=== PATIENT | female | born 1975 | race Caucasian/White ===

== ENCOUNTER → 2025-04-24 13:34 | Outpatient (CLI) | payer OTHER, SELFPAY ==
--- NOTE | 2025-04-24 13:37 | DI.US.S_ITS ---
PROCEDURE: US PELVIC COMPLETE INDICATIONS: IUD not easily removed. Check for positioning TECHNIQUE: Real-time scanning was performed of the pelvic organs, with image documentation. Additional endovaginal scanning was necessary due to incomplete visualization of the adnexal and endometrial structures by transabdominal scanning. COMPARISON: None. FINDINGS: Uterus: Uterus is anteverted and normal in size at 6.0 x 2.5 x 4.1 cm. The myometrium is homogeneous. The endometrium measures 3.1 mm combined thickness. There is an IUD with appropriate positioning in the fundal endometrium. No myometrial mass, cyst, or periuterine fluid collection. Ovaries: The right ovary measures 2.2 x 0.7 x 0.9 cm, with a calculated ovarian volume of 0.7 cc. The left ovary measures 1.7 x 1.2 x 1.6 cm, with a calculated ovarian volume of 1.6 cc. Ovarian appearance is age-appropriate. No adnexal masses are seen. Other: No pathologic free abdominal or pelvic fluid. IMPRESSION: Anteverted uterus without a quit positioning of IUD. We strive to produce accurate, complete, and clear reports of imaging services. To assist us in improving patient care, this report was composed using standard report templates and voice recognition software. Therefore, it may contain abnormal punctuation, insertions and/or omissions. Occasional wrong-word or sound-alike substitutions may occur. Though we review the report and make efforts to correct it, we do recommend that the report be read carefully in proper context to recognize any text inaccuracies. Dictated by: Janell Xiong M.D. on 04/25/2025 at 11:19 Approved by: Janell Xiong M.D. on 04/25/2025 at 11:23
== END ==
LOC: US 13:36
PROVIDERS: Visit Provider Physician Assistant
DX: Z30.432 Encounter for removal of intrauterine contraceptive device (principal)
CPT/HCPCS: 76830; 76856

== ENCOUNTER → 2025-04-28 13:32 | Outpatient (CLI) | payer OTHER, SELFPAY ==
[2025-04-29 15:26] LABS: Hepatitis B Surface Antigen NEGATIVE s/c (NEGATIVE)
[2025-04-29 15:40] LABS: HIV 1 & 2 Ab/Ag 4th Gen Combo NEGATIVE (NEGATIVE); Hep C Virus Ab w/Reflex Quant NEGATIVE s/c (NEGATIVE)
== END ==
PROVIDERS: Visit Provider Physician Assistant
DX: Z11.3 Encounter for screening for infections with a predominantly sexual mode of transmission (principal)
CPT/HCPCS: 86592; 86803; 87340; 87389